=== PATIENT | male | born 1970 | race Caucasian/White ===

== ENCOUNTER 2016-08-02 18:14 | Emergency (ER) ==
[2016-08-02] MEDS ORDERED: XYLOCAINE-MPF 1% INJ ONE (18:55)
--- NOTE | 2016-08-02 19:56 | PROVIDER DOCUMENTATION ---
HPI-Rash/Wound/ReCheck <Yuli Reyna - Last Filed: 08/02/16 19:57> - General Source: patient - History of Present Illness-Dermatology Location: reports: upper extremity (R hand, thumb) Severity: reports: mild Onset/Duration: reports: just prior to arrival Timing: reports: still present Context/Associated Symptoms: reports: laceration (4cm R thumb, dorsum). denies : insect bite/sting, tick bite, spider bite, unknown bite/sting, abrasion, bruising/hematoma, stab wound, burn, blisters, change in skin texture, flushing , jaundice, lesion, numbness, paresthesia, petechiae, rash, sore throat, tender area Identifiable cause?: Yes (punched a mirror) Locality of Occurance: Home Similar Symptoms Previously?: No Recently seen or treated by another doctor?: No <Luan Young - Last Filed: 08/02/16 20:38> - General Chief Complaint: Extremity Injury Stated Complaint: RT HAND INJ Time Seen by Provider: 08/02/16 18:55 Allergies/Adverse Reactions: Allergies Allergy/AdvReac Type Severity Reaction Status Date / Time No Known Allergies Allergy Verified 08/28/14 15:13 Home Medications: Home Medication List Medication Instructions Recorded Confirmed Last Taken Type Hydrocodone/APAP 5 mg/325 mg 1 each PO Q6H PRN PRN #12 tablet 09/08/12 08/28/14 08/27/14 16:00 Rx [Harriet-5] Cyclobenzaprine [Flexeril] 10 mg PO TID #20 tablet 08/28/14 Unknown Rx Meloxicam [Mobic] 7.5 mg PO DAILY PRN PRN #15 tablet 08/28/14 Unknown Rx Omeprazole [Prilosec] 20 mg PO DAILY@0700 #20 capsule 08/28/14 Unknown Rx Cephalexin [Keflex] 500 mg PO BID #20 capsule 08/02/16 Unknown Rx Hydrocodone/APAP 7.5 mg/325 mg 1 each PO Q6H PRN PRN #10 tablet 08/02/16 Unknown Rx [Harriet-7.5] - History of Present Illness-Dermatology Nature of Presenting Problem: Pt is a 45 yom who presents to ER with CC of a 4cm laceration to R thumb over the dorsum. Pt reports that he got angry earlier tonight so he punched a mirror. On exam, pt has painful, but full ROM in RUE, no motor/sensory deficits. Pt denies any other sxs. (Luan Young) Review of Systems - Adult - REVIEW OF SYSTEMS - ADULT Constitutional: denies: chills, fever, fatique, night sweats, weight gain, weight loss Eyes: reports: no symptoms reported Ears, Nose, Mouth & Throat: reports: no symptoms reported Cardiovascular: reports: no symptoms reported Respiratory: reports: no symptoms reported Gastrointestinal: reports: no symptoms reported Genitourinary: reports: no symptoms reported Musculoskeletal: reports: no symptoms reported Integumentary: reports: other (4cm linear laceration to R thumb dorsum). denies : hives, hair loss, itching, mole changes, nail changes, rash, skin sores/ulcer , skin thickening Neurological: reports: no symptoms reported Psychiatric: reports: other (angery). denies: anxiety, anti-depressant use, alcohol/drug dependence, depression, emotional problems, insomnia, panic attacks , suicidal thoughts Endocrine: reports: no symptoms reported Hematologic/Lymphatic: reports: no symptoms reported Allergic/Immunologic: reports: no symptoms reported All Other Systems: Reviewed and Negative <Luan Young - Last Filed: 08/02/16 20:38> Past History - Adult - PRIOR SURGERIES/PROCEDURES Surgical/Procedure History: reports: appendectomy - PRIOR HOSPITALIZATIONS Prior Hospitalizations: reports: none - IMMUNIZATION STATUS Childhood Immunizations: See Nurse Assessment Flu Vaccine: See Nurse Assessment - FAMILY HISTORY Family History: reviewed, not pertinent <Yuli Reyna - Last Filed: 08/02/16 19:57> - PAST MEDICAL HISTORY-ADULT Review of Records: reports: Nursing Assessment Review, Medications Reviewed - IMMUNIZATION STATUS Childhood Immunizations: See Nurse Assessment Flu Vaccine: See Nurse Assessment <Luan Young - Last Filed: 08/02/16 20:38> Physical Exam-General - PHYSICAL EXAM-ADULT Initial Vital Signs Reviewed: Yes - CONSTITUTIONAL General Appearance: appears well, alert, mild distress. negative: no apparent distress - NECK Neck: non-tender, full range of motion, supple - RESPIRATORY Respiratory: chest non-tender, lungs clear, normal breath sounds, no pleuratic chest pain, no respiratory distress, no accessory muscle use. negative: respiratory distress, decreased breath sounds, accessory muscle use, wheezing - CARDIOVASCULAR Cardiovascular: normal peripheral pulses, regular rate, rhythm. negative: bradycardia, tachycardia, irregularly irregular - MUSCULOSKELETAL Extremity: normal range of motion, non-tender, normal gait, tenderness, other ( 4cm laceration to R thumb). negative: erythema, inflammation - SKIN Integumentary: normal color, normal turgor, warm/dry, laceration(s) (4cm linear to R thumb). negative: abrasion(s), ecchymosis, erythema, swelling, tenderness - NEUROLOGIC Neurologic: grossly normal, no motor/sensory deficits. negative: facial droop, focal weakness, motor weakness, sensory deficit - PSYCHIATRIC Psych/Mental Status: normal mood/affect, normal thought content, normal thought process, oriented x 3 <Luan Young - Last Filed: 08/02/16 20:38> Progress <Yuli Reyna - Last Filed: 08/02/16 19:57> - XRAY 1 XRAY: Right XRAY Study: Hand Impression: See EMR Report XRAY Interpretation: apparent fx at pip - preliminary ER reading <Luan Young - Last Filed: 08/02/16 20:38> - PLAN OF CARE/RESULTS Progress/Plan/Lab Results: Vital Signs - 24 hr 08/02/16 08/02/16 18:34 20:07 Temperature 98 F Pulse Rate 112 H 111 H Respiratory 20 19 Rate Blood Pressure 158/97 164/105 O2 Sat by Pulse 98 100 Oximetry Orders Category Date Time Status Finger Splint DIRECTED Care 08/02/16 19:57 Active Laceration Set up DIRECTED Care 08/02/16 18:55 Active HAND COMPLETE RIGHT [RAD] Stat Exams 08/02/16 18:25 Taken Lidocaine 1% Pf [Xylocaine-Mpf 1%] Med 08/02/16 18:55 Discontinued 10 ml INJ NOW ONE (Luan Young) Procedures - LACERATION/WOUND REPAIR/FB Right Finger Wound Location: Other: thumb Wound Length: 4 cm Wound's Depth, Shape: superficial, linear Wound Explored/Foreign Body: clean Irrigated with Saline?: Yes Prepped with: Robert, Kit Utilized Anesthetic: 1%, Lidocaine/Xylocaine Volume of Anesthetic (ml's): 5 Wound Debrided: minimal Wound Repaired with: Sutures Suture Size/Type: 4.0, Non-Absorbable Number of Sutures: 7 Sterile Dressing Applied?: Yes Splint Applied?: Yes Sling Applied?: No Post Procedure Neurovascular Exam: Intact <Yuli ReynaYessica - Last Filed: 08/02/16 19:57> Departure - Departure Time of Disposition Order: 19:54 Certified Medical Emergency: Emergent <Yuli Reyna - Last Filed: 08/02/16 19:57> - Departure Time of Disposition Order: 20:12 Certified Medical Emergency: Emergent <Luan Young - Last Filed: 08/02/16 20:38> - Departure DIAGNOSIS: Laceration, Finger fracture, right Disposition: HOME 01 Condition: Stable Additional Instructions: Follow up with Dr. Pulido, orthopedic Return in 7-10 days for removal ED Follow Up Instructions: You have been treated by a care provider in the Emergency Department. These instructions are being provided to you so you can have an understanding of how to care for yourself upon discharge. Upon discharge from the Emergency Department, you are responsible for making arrangements for follow-up care by a physician of your choice. Take all prescribed medications as directed. Return to the Emergency Department immediately for any new or worsening symptoms. You may call the Physician Referral phone number at [phone] to obtain a list of Physicians who are taking new patients. Prescriptions: Cephalexin [Keflex] 500 mg PO BID #20 capsule Hydrocodone/APAP 7.5 mg/325 mg [Harriet-7.5] 1 each PO Q6H PRN PRN #10 tablet PRN Reason: Pain Referrals: None,PCP [Primary Care Provider] - Luis Pulido MD [STAFF PHYSICIAN] - Instructions: Finger Fracture, [id number], Laceration Care, Adult, Easy-to- Read Attestation - Scribe Verification/Attestation Scribe:: Luan Young Acting as Scribe for:: Yuli Jose David Reyna Scribe documention review:: This chart was documented by a scribe and accurately reflects the service the provider performed and the decisions made by the provider. <Luan Young - Last Filed: 08/02/16 20:38> Physician Attestation
[2016-08-02 20:08] VITALS: BP 164/105
--- NOTE | 2016-08-02 21:10 | Diag Imaging Result Document ---
PROCEDURE NAME: HAND COMPLETE RIGHT - 08/02/2016 PLAIN RADIOGRAPH OF THE RIGHT HAND, 3 VIEWS: COMPARISON: None available. FINDINGS: There is stable mild deformity involving the distal shaft of the 5th metacarpal that appears chronic and is probably related to a distant fracture. There is no evidence of acute fracture, dislocation, or intrinsic osseous lesion, otherwise. There is soft tissue edema and bandaging around the thumb. IMPRESSION: No evidence of acute osseous abnormality.
== END 2016-08-02 20:12 | disposition home or self-care (01) ==
LOC: ED 18:14
DX: S61.011A Laceration without foreign body of right thumb without damage to nail, initial encounter (principal); W22.8XXA Striking against or struck by other objects, initial encounter; Z79.899 Other long term (current) drug therapy